=== PATIENT | female | born 1955 | race Caucasian/White ===

== ENCOUNTER → 2024-02-26 11:32 | Outpatient (BNVA) | payer MEDICARE, SELFPAY | DX: E11.9 Type 2 diabetes mellitus without complications (principal); Z76.89 Persons encountering health services in other specified circumstances; I10 Essential (primary) hypertension; E78.5 Hyperlipidemia, unspecified; Z53.20 Procedure and treatment not carried out because of patient's decision for unspecified reasons | CPT/HCPCS: 80053; 83036; 85025 ==

== ENCOUNTER → 2024-07-08 14:44 | Outpatient (BNVA) | payer MEDICARE, SELFPAY | DX: E78.5 Hyperlipidemia, unspecified (principal); E11.9 Type 2 diabetes mellitus without complications | CPT/HCPCS: 80053; 80061; 83036 ==

== ENCOUNTER → 2025-01-06 09:02 | Outpatient (BNVA) | payer MEDICARE, SELFPAY | DX: I10 Essential (primary) hypertension (principal); E11.9 Type 2 diabetes mellitus without complications; E78.5 Hyperlipidemia, unspecified | CPT/HCPCS: 80053; 80061; 83036 ==